=== PATIENT | male | born 1985 | race Two or more races ===

== ENCOUNTER 2021-07-16 13:51 | Inpatient (IN) | payer SELFPAY ==
[~2021-07-16] VITALS: Ht 190.5 cm; Wt 148.3 kg
[2021-07-16] MEDS ORDERED: DEXAMETHASONE SOD PHOSPHATE 6 MG in IV D5W 50 ML IV ONE (14:30)
[2021-07-16] MEDS ORDERED: IV NS 0.9% 1,000 ML IV ONE (14:30)
[2021-07-16] MEDS ORDERED: DEXAMETHASONE SOD PHOSPHATE 10 MG/ML VIAL ONE (14:32)
[2021-07-16] MEDS ORDERED: METF-442 PO (14:39)
[2021-07-16] MEDS ORDERED: LISI20TA30 PO (14:39)
[2021-07-16] MEDS ORDERED: CARV12.52 PO (14:39)
[2021-07-16] MEDS ORDERED: INSU100I26 SQ (14:39)
[2021-07-16] MEDS ORDERED: ASPI-1420 PO (14:39)
[2021-07-16] MEDS ORDERED: INSU100I34 SQ (14:39)
[2021-07-16] MEDS ORDERED: ATOR40TA PO (14:39)
[2021-07-16] MEDS ORDERED: GLIP5TAB13 PO (14:39)
[2021-07-16 15:25] LABS: BASOPHILS % (AUTO) 0.1 % (0.0-2.0); EOSINOPHILS % (AUTO) 0.3 % (0.0-6.0); HEMATOCRIT 37 % (39-51); HEMOGLOBIN 12.2 g/dL (13.5-17.5); LYMPHOCYTES # (AUTO) 0.9 K/uL (0.8-4.8); LYMPHOCYTES % (AUTO) 14.5 % (20.0-44.0); MEAN CORPUSCULAR HGB CONC 33 g/dl (31.0-36.0); MEAN CORPUSCULAR VOLUME 90 fL (80-96); MONOCYTES # (AUTO) 0.6 K/uL (0.1-1.30); MONOCYTES % (AUTO) 10.1 % (2.0-12.0); NEUTROPHILS # (AUTO) 4.5 K/uL (1.8-8.9); PLATELET COUNT (AUTO) 236 K/uL (150-450); RED BLOOD CELL COUNT(AUTO) 4.08 MIL/uL (4.5-6.0)
[2021-07-16 15:53] LABS: ALBUMIN 2.4 g/dL (3.4-5.0); BILIRUBIN,TOTAL 0.4 mg/dL (0.2-1.0); CALCIUM, SERUM 8.4 mg/dL (8.5-10.1); CREATININE 1.3 mg/dL (0.6-1.3); POTASSIUM 4.3 mmol/L (3.5-5.1); TOTAL PROTEIN, SERUM 7.4 g/dL (6.4-8.2)
[2021-07-16 15:57] LABS: D-DIMER 1.06 mg/L(FEU (0.17-0.50)
[2021-07-16 16:13] LABS: C-REACTIVE PROTEIN 6.2 mg/dL (0.0-0.9)
[2021-07-16] MEDS ORDERED: ONDANSETRON HCL/PF 4 MG/2 ML VIAL IVP PRN (16:30)
[2021-07-16] MEDS ORDERED: MAG HYDROX/AL HYDROX/SIMETH 30 ML UDC PO PRN (16:30)
[2021-07-16] MEDS ORDERED: ACETAMINOPHEN 325 MG TABLET PO PRN (16:30)
[2021-07-16] MEDS ORDERED: MORPHINE SULFATE INJ 2 MG/ML DISP.SYRIN IV PRN (16:30)
[2021-07-16] MEDS ORDERED: LABETALOL 20 MG/4 ML VIAL IV PRN (16:30)
[2021-07-16] MEDS ORDERED: MAGNESIUM HYDROXIDE 30 ML UDC PO PRN (16:30)
[2021-07-16] MEDS ORDERED: DEXTROSE 50%-WATER 50 ML DISP.SYRIN IV PRN (16:30)
[2021-07-16] MEDS ORDERED: ALBUTEROL SULFATE 8 GM HFA.AER.AD IH PRN (17:00)
[2021-07-16] MEDS ORDERED: METFORMIN 500 MG TABLET PO SCH (18:02)
[2021-07-16] MEDS ORDERED: CARVEDILOL 12.5 MG TABLET ONE (18:08)
[2021-07-16] MEDS ORDERED: ENOXAPARIN SODIUM 40 MG/0.4 ML DISP.SYRIN SQ ONE (18:08)
[2021-07-16] MEDS: CARVEDILOL 12.5 MG TABLET PO SCH (18:20)
[2021-07-16] MEDS: ENOXAPARIN SODIUM 40 MG/0.4 ML DISP.SYRIN SQ SCH (18:30)
[2021-07-16] MEDS: BLOOD SUGAR DIAGNOSTIC 1 EACH STRIP IN SCH ×2 (19:10→22:30)
[2021-07-16] MEDS ORDERED: ATORVASTATIN 40 MG TABLET ONE (19:13)
[2021-07-16] MEDS ORDERED: INSULIN REGULAR, HUMAN 100 UNIT/ML 10 ML VIAL ONE (19:14)
[2021-07-16] MEDS ORDERED: METFORMIN 500 MG TABLET ONE (19:14)
[2021-07-16] MEDS: ATORVASTATIN 40 MG TABLET PO SCH (19:27)
[2021-07-16] MEDS: INSULIN REGULAR, HUMAN 100 UNIT/ML 3 ML VIAL SQ PRN (19:29)
[2021-07-16 19:49] LABS: ABG BASE EXCESS -5.5 mmol/L; ABG PCO2 21.4 mmHg (35.0-45.0); ABG PH 7.486 (7.350-7.450); ABG PO2 116.6 mmHg (75.0-100.0); COHb 0.3 % (0.5-1.5); MetHb 0.1 % (0.0-1.5); O2Hb 97.4 % (94.0-97.0); SITE, ABG Right Radial; VENT MODE, BG NASAL CANNULA 6LPM
[2021-07-16] MEDS: FLUTICASONE/VILANTEROL 1 EACH BLST.W.DEV IH SCH (20:20)
[2021-07-16 21:30] VITALS: BP 124/79
[2021-07-16 21:40] LABS: ALBUMIN 2.2 g/dL (3.4-5.0); BILIRUBIN,DIRECT 0.2 mg/dL (0.0-0.2); BILIRUBIN,TOTAL 0.5 mg/dL (0.2-1.0); CALCIUM, SERUM 8.1 mg/dL (8.5-10.1); CREATININE 1.3 mg/dL (0.6-1.3); POTASSIUM 4.4 mmol/L (3.5-5.1)
[2021-07-16] MEDS ORDERED: REMDESIVIR (CHARGED) 200 MG, *LOADING DOSE 1 EA in IV NS 0.9% 210 ML IV ONE (22:00)
[2021-07-16] MEDS: INSULIN GLARGINE, 100 UNIT/ML CARTRIDGE SQ SCH (23:05)
[2021-07-17] VITALS: BP 145/97
[2021-07-17 04:00] VITALS: BP 142/100
[2021-07-17] MEDS: BLOOD SUGAR DIAGNOSTIC 1 EACH STRIP IN SCH ×4 (07:58→22:03)
[2021-07-17 08:00] VITALS: BP 135/92
[2021-07-17 08:44] LABS: BASOPHILS % (AUTO) 0.1 % (0.0-2.0); HEMATOCRIT 36 % (39-51); HEMOGLOBIN 12.3 g/dL (13.5-17.5); LYMPHOCYTES # (AUTO) 0.7 K/uL (0.8-4.8); LYMPHOCYTES % (AUTO) 15.9 % (20.0-44.0); MEAN CORPUSCULAR HGB CONC 34 g/dl (31.0-36.0); MEAN CORPUSCULAR VOLUME 89 fL (80-96); MONOCYTES # (AUTO) 0.6 K/uL (0.1-1.30); MONOCYTES % (AUTO) 13.6 % (2.0-12.0); NEUTROPHILS # (AUTO) 3.2 K/uL (1.8-8.9); NEUTROPHILS % (AUTO) 70.4 % (43.0-81.0); PLATELET COUNT (AUTO) 287 K/uL (150-450); RED BLOOD CELL COUNT(AUTO) 4.09 MIL/uL (4.5-6.0); WHITE BLOOD COUNT (AUTO) 4.5 K/uL (4.3-11.0)
[2021-07-17 08:58] LABS: ALBUMIN 2.1 g/dL (3.4-5.0); BILIRUBIN,TOTAL 0.5 mg/dL (0.2-1.0); CALCIUM, SERUM 8.6 mg/dL (8.5-10.1); CREATININE 1.2 mg/dL (0.6-1.3); MAGNESIUM 2.1 mg/dL (1.8-2.4); PHOSPHORUS 4.1 mg/dL (2.5-4.9); POTASSIUM 4.3 mmol/L (3.5-5.1); TOTAL PROTEIN, SERUM 6.8 g/dL (6.4-8.2)
[2021-07-17] MEDS: ASPIRIN EC 81 MG TABLET.DR PO SCH (08:59)
[2021-07-17] MEDS: LISINOPRIL (20MG) 20 MG TABLET PO SCH (08:59)
[2021-07-17] MEDS: DEXAMETHASONE SOD PHOSPHATE 10 MG/ML VIAL IV SCH (08:59)
[2021-07-17] MEDS: CARVEDILOL 12.5 MG TABLET PO SCH ×2 (09:00→17:04)
[2021-07-17] MEDS ORDERED: DEXAMETHASONE SOD PHOSPHATE 6 MG in IV D5W 50 ML IV SCH (09:00)
[2021-07-17] MEDS: FLUTICASONE/VILANTEROL 1 EACH BLST.W.DEV IH SCH (09:00)
[2021-07-17] MEDS: INSULIN REGULAR, HUMAN 100 UNIT/ML 3 ML VIAL SQ PRN ×3 (09:00→17:13)
[2021-07-17 12:00] VITALS: BP 140/90
[2021-07-17 16:00] VITALS: BP 132/82
[2021-07-17] MEDS: ATORVASTATIN 40 MG TABLET PO SCH (17:04)
[2021-07-17 20:00] VITALS: BP 136/86
[2021-07-17] MEDS: REMDESIVIR (CHARGED) 100 MG in IV NS 0.9% 100 ML IV SCH (20:41)
[2021-07-17] MEDS: ENOXAPARIN SODIUM 40 MG/0.4 ML DISP.SYRIN SQ SCH (20:41)
[2021-07-17] MEDS: INSULIN GLARGINE, 100 UNIT/ML CARTRIDGE SQ SCH (22:05)
[2021-07-18] VITALS: BP 131/72
[2021-07-18 04:00] VITALS: BP 122/72
[2021-07-18] MEDS: BLOOD SUGAR DIAGNOSTIC 1 EACH STRIP IN SCH ×4 (07:52→23:20)
[2021-07-18 08:00] VITALS: BP 126/75
[2021-07-18] MEDS: INSULIN REGULAR, HUMAN 100 UNIT/ML 3 ML VIAL SQ PRN ×4 (08:08→17:41)
[2021-07-18] MEDS: FLUTICASONE/VILANTEROL 1 EACH BLST.W.DEV IH SCH (09:12)
[2021-07-18] MEDS: DEXAMETHASONE SOD PHOSPHATE 10 MG/ML VIAL IV SCH (09:12)
[2021-07-18] MEDS: ASPIRIN EC 81 MG TABLET.DR PO SCH (09:13)
[2021-07-18] MEDS: CARVEDILOL 12.5 MG TABLET PO SCH ×2 (09:14→17:40)
[2021-07-18] MEDS: LISINOPRIL (20MG) 20 MG TABLET PO SCH (09:14)
[2021-07-18 12:00] VITALS: BP 129/76
[2021-07-18 14:18] LABS: BASOPHILS % (AUTO) 0.3 % (0.0-2.0); EOSINOPHILS % (AUTO) 0.2 % (0.0-6.0); HEMATOCRIT 38 % (39-51); HEMOGLOBIN 12.7 g/dL (13.5-17.5); LYMPHOCYTES # (AUTO) 0.7 K/uL (0.8-4.8); LYMPHOCYTES % (AUTO) 7.4 % (20.0-44.0); MEAN CORPUSCULAR HGB CONC 34 g/dl (31.0-36.0); MEAN CORPUSCULAR VOLUME 89 fL (80-96); MONOCYTES # (AUTO) 0.6 K/uL (0.1-1.30); MONOCYTES % (AUTO) 6.9 % (2.0-12.0); NEUTROPHILS # (AUTO) 7.6 K/uL (1.8-8.9); NEUTROPHILS % (AUTO) 85.2 % (43.0-81.0); PLATELET COUNT (AUTO) 319 K/uL (150-450); RED BLOOD CELL COUNT(AUTO) 4.24 MIL/uL (4.5-6.0); WHITE BLOOD COUNT (AUTO) 8.9 K/uL (4.3-11.0)
[2021-07-18 14:36] LABS: ALBUMIN 2.1 g/dL (3.4-5.0); BILIRUBIN,DIRECT 0.1 mg/dL (0.0-0.2); BILIRUBIN,TOTAL 0.4 mg/dL (0.2-1.0); CALCIUM, SERUM 9.3 mg/dL (8.5-10.1); CREATININE 1.2 mg/dL (0.6-1.3); POTASSIUM 4.2 mmol/L (3.5-5.1); TOTAL PROTEIN, SERUM 6.6 g/dL (6.4-8.2)
[2021-07-18 16:00] VITALS: BP 153/86
[2021-07-18] MEDS: ATORVASTATIN 40 MG TABLET PO SCH (17:39)
[2021-07-18 20:00] VITALS: BP 131/73
[2021-07-18] MEDS: ENOXAPARIN SODIUM 40 MG/0.4 ML DISP.SYRIN SQ SCH (21:57)
[2021-07-18] MEDS: INSULIN GLARGINE, 100 UNIT/ML CARTRIDGE SQ SCH (22:57)
[2021-07-18] MEDS: REMDESIVIR (CHARGED) 100 MG in IV NS 0.9% 100 ML IV SCH (23:21)
[2021-07-19] VITALS: BP 130/70
[2021-07-19 04:00] VITALS: BP 136/71
[2021-07-19 07:21] LABS: BASOPHILS % (AUTO) 0.1 % (0.0-2.0); EOSINOPHILS % (AUTO) 1.1 % (0.0-6.0); HEMATOCRIT 36 % (39-51); LYMPHOCYTES # (AUTO) 1.2 K/uL (0.8-4.8); LYMPHOCYTES % (AUTO) 18.1 % (20.0-44.0); MEAN CORPUSCULAR HGB CONC 34 g/dl (31.0-36.0); MEAN CORPUSCULAR VOLUME 89 fL (80-96); MONOCYTES # (AUTO) 0.7 K/uL (0.1-1.30); MONOCYTES % (AUTO) 10.7 % (2.0-12.0); NEUTROPHILS # (AUTO) 4.8 K/uL (1.8-8.9); PLATELET COUNT (AUTO) 312 K/uL (150-450); RED BLOOD CELL COUNT(AUTO) 4.01 MIL/uL (4.5-6.0); WHITE BLOOD COUNT (AUTO) 6.9 K/uL (4.3-11.0)
[2021-07-19 08:00] VITALS: BP 136/93
[2021-07-19 08:34] LABS: ALBUMIN 2.1 g/dL (3.4-5.0); BILIRUBIN,DIRECT 0.2 mg/dL (0.0-0.2); BILIRUBIN,TOTAL 0.4 mg/dL (0.2-1.0); CALCIUM, SERUM 8.3 mg/dL (8.5-10.1); CREATININE 1.1 mg/dL (0.6-1.3); POTASSIUM 3.8 mmol/L (3.5-5.1); TOTAL PROTEIN, SERUM 6.3 g/dL (6.4-8.2)
[2021-07-19] MEDS: BLOOD SUGAR DIAGNOSTIC 1 EACH STRIP IN SCH ×4 (10:32→21:08)
[2021-07-19] MEDS: LISINOPRIL (20MG) 20 MG TABLET PO SCH (10:32)
[2021-07-19] MEDS: ASPIRIN EC 81 MG TABLET.DR PO SCH (10:32)
[2021-07-19] MEDS: CARVEDILOL 12.5 MG TABLET PO SCH ×2 (10:33→17:37)
[2021-07-19] MEDS: DEXAMETHASONE SOD PHOSPHATE 10 MG/ML VIAL IV SCH (10:33)
[2021-07-19] MEDS: INSULIN REGULAR, HUMAN 100 UNIT/ML 3 ML VIAL SQ PRN ×3 (10:37→18:05)
[2021-07-19] MEDS: FLUTICASONE/VILANTEROL 1 EACH BLST.W.DEV IH SCH (11:00)
[2021-07-19 12:00] VITALS: BP 123/81
[2021-07-19 16:00] VITALS: BP 126/65
[2021-07-19] MEDS: ATORVASTATIN 40 MG TABLET PO SCH (17:36)
[2021-07-19 20:00] VITALS: BP 100/67
[2021-07-19] MEDS: REMDESIVIR (CHARGED) 100 MG in IV NS 0.9% 100 ML IV SCH (21:05)
[2021-07-19] MEDS: ENOXAPARIN SODIUM 40 MG/0.4 ML DISP.SYRIN SQ SCH (21:08)
[2021-07-19] MEDS: INSULIN GLARGINE, 100 UNIT/ML CARTRIDGE SQ SCH (21:58)
[2021-07-20] VITALS: BP 111/76
[2021-07-20 04:00] VITALS: BP 147/84
[2021-07-20 07:52] LABS: BASOPHILS % (AUTO) 0.1 % (0.0-2.0); EOSINOPHILS % (AUTO) 1.5 % (0.0-6.0); HEMATOCRIT 36 % (39-51); HEMOGLOBIN 12.2 g/dL (13.5-17.5); LYMPHOCYTES # (AUTO) 1.4 K/uL (0.8-4.8); LYMPHOCYTES % (AUTO) 22.1 % (20.0-44.0); MEAN CORPUSCULAR HGB CONC 34 g/dl (31.0-36.0); MEAN CORPUSCULAR VOLUME 90 fL (80-96); MONOCYTES # (AUTO) 0.7 K/uL (0.1-1.30); MONOCYTES % (AUTO) 10.8 % (2.0-12.0); NEUTROPHILS # (AUTO) 4.1 K/uL (1.8-8.9); NEUTROPHILS % (AUTO) 65.5 % (43.0-81.0); PLATELET COUNT (AUTO) 318 K/uL (150-450); RED BLOOD CELL COUNT(AUTO) 4.02 MIL/uL (4.5-6.0); WHITE BLOOD COUNT (AUTO) 6.3 K/uL (4.3-11.0)
[2021-07-20 08:00] VITALS: BP 126/82
[2021-07-20 08:26] LABS: ALBUMIN 2.1 g/dL (3.4-5.0); BILIRUBIN,DIRECT 0.2 mg/dL (0.0-0.2); BILIRUBIN,TOTAL 0.5 mg/dL (0.2-1.0); CALCIUM, SERUM 8.5 mg/dL (8.5-10.1); CREATININE 1.1 mg/dL (0.6-1.3); TOTAL PROTEIN, SERUM 6.5 g/dL (6.4-8.2)
[2021-07-20] MEDS: DEXAMETHASONE SOD PHOSPHATE 10 MG/ML VIAL IV SCH (09:03)
[2021-07-20] MEDS: CARVEDILOL 12.5 MG TABLET PO SCH ×2 (09:03→16:40)
[2021-07-20] MEDS: LISINOPRIL (20MG) 20 MG TABLET PO SCH (09:03)
[2021-07-20] MEDS: ASPIRIN EC 81 MG TABLET.DR PO SCH (09:03)
[2021-07-20] MEDS: FLUTICASONE/VILANTEROL 1 EACH BLST.W.DEV IH SCH (09:04)
[2021-07-20] MEDS: INSULIN REGULAR, HUMAN 100 UNIT/ML 3 ML VIAL SQ PRN ×3 (09:16→16:47)
[2021-07-20] MEDS: BLOOD SUGAR DIAGNOSTIC 1 EACH STRIP IN SCH ×4 (09:16→21:45)
[2021-07-20 12:00] VITALS: BP 126/70
[2021-07-20 16:00] VITALS: BP 117/78
[2021-07-20] MEDS: ATORVASTATIN 40 MG TABLET PO SCH (17:05)
[2021-07-20 20:00] VITALS: BP 110/67
[2021-07-20] MEDS: REMDESIVIR (CHARGED) 100 MG in IV NS 0.9% 100 ML IV SCH (21:43)
[2021-07-20] MEDS: ENOXAPARIN SODIUM 40 MG/0.4 ML DISP.SYRIN SQ SCH (21:50)
[2021-07-20] MEDS ORDERED: INSULIN REGULAR, HUMAN 100 UNIT/ML 3 ML VIAL SQ PRN (22:30)
[2021-07-20] MEDS ORDERED: DEXTROSE 50%-WATER 50 ML DISP.SYRIN IV PRN (22:30)
[2021-07-20] MEDS: INSULIN GLARGINE, 100 UNIT/ML CARTRIDGE SQ SCH (22:54)
[2021-07-20] MEDS: *INSULIN REGULAR(HUMULIN R)HUM 100 UNIT/ML VIAL SQ PRN (23:02)
[2021-07-21] VITALS: BP 109/77
[2021-07-21 04:00] VITALS: BP 132/74
[2021-07-21 08:00] VITALS: BP 100/66
[2021-07-21 08:16] LABS: BASOPHILS % (AUTO) 0.2 % (0.0-2.0); EOSINOPHILS % (AUTO) 0.8 % (0.0-6.0); HEMATOCRIT 37 % (39-51); HEMOGLOBIN 12.6 g/dL (13.5-17.5); LYMPHOCYTES # (AUTO) 1.7 K/uL (0.8-4.8); LYMPHOCYTES % (AUTO) 23.5 % (20.0-44.0); MEAN CORPUSCULAR HGB CONC 34 g/dl (31.0-36.0); MEAN CORPUSCULAR VOLUME 90 fL (80-96); MONOCYTES # (AUTO) 0.7 K/uL (0.1-1.30); MONOCYTES % (AUTO) 10.1 % (2.0-12.0); NEUTROPHILS # (AUTO) 4.8 K/uL (1.8-8.9); NEUTROPHILS % (AUTO) 65.4 % (43.0-81.0); PLATELET COUNT (AUTO) 355 K/uL (150-450); RED BLOOD CELL COUNT(AUTO) 4.16 MIL/uL (4.5-6.0); WHITE BLOOD COUNT (AUTO) 7.4 K/uL (4.3-11.0)
[2021-07-21 08:29] LABS: ALBUMIN 2.2 g/dL (3.4-5.0); BILIRUBIN,DIRECT 0.2 mg/dL (0.0-0.2); BILIRUBIN,TOTAL 0.5 mg/dL (0.2-1.0); CALCIUM, SERUM 8.7 mg/dL (8.5-10.1); CREATININE 1.1 mg/dL (0.6-1.3); TOTAL PROTEIN, SERUM 6.5 g/dL (6.4-8.2)
[2021-07-21] MEDS: BLOOD SUGAR DIAGNOSTIC 1 EACH STRIP IN SCH ×4 (08:52→22:52)
[2021-07-21] MEDS: ASPIRIN EC 81 MG TABLET.DR PO SCH (08:54)
[2021-07-21] MEDS: DEXAMETHASONE SOD PHOSPHATE 10 MG/ML VIAL IV SCH (08:54)
[2021-07-21] MEDS: CARVEDILOL 12.5 MG TABLET PO SCH ×2 (08:56→17:52)
[2021-07-21] MEDS: LISINOPRIL (20MG) 20 MG TABLET PO SCH (08:57)
[2021-07-21] MEDS: FLUTICASONE/VILANTEROL 1 EACH BLST.W.DEV IH SCH (09:13)
[2021-07-21 12:00] VITALS: BP 108/65
[2021-07-21 16:00] VITALS: BP 125/87
[2021-07-21] MEDS: ATORVASTATIN 40 MG TABLET PO SCH (17:51)
[2021-07-21 20:00] VITALS: BP 137/94
[2021-07-21] MEDS: ENOXAPARIN SODIUM 40 MG/0.4 ML DISP.SYRIN SQ SCH (21:57)
[2021-07-21] MEDS ORDERED: BLOOD SUGAR DIAGNOSTIC 1 EACH STRIP VI SCH (22:00)
[2021-07-21] MEDS: *INSULIN REGULAR(HUMULIN R)HUM 100 UNIT/ML VIAL SQ PRN (22:45)
[2021-07-21] MEDS: INSULIN GLARGINE, 100 UNIT/ML CARTRIDGE SQ SCH (22:48)
[2021-07-22] VITALS: BP_SYST 105; BP_SYST 137; BP_DIAS 61; BP_DIAS 94
[2021-07-22 04:00] VITALS: BP 154/88
[2021-07-22] MEDS: BLOOD SUGAR DIAGNOSTIC 1 EACH STRIP IN SCH (07:59)
[2021-07-22] MEDS: ASPIRIN EC 81 MG TABLET.DR PO SCH (08:31)
[2021-07-22 08:32] VITALS: BP 138/81
[2021-07-22] MEDS: CARVEDILOL 12.5 MG TABLET PO SCH (08:32)
[2021-07-22] MEDS: FLUTICASONE/VILANTEROL 1 EACH BLST.W.DEV IH SCH (08:32)
[2021-07-22] MEDS: LISINOPRIL (20MG) 20 MG TABLET PO SCH (08:32)
[2021-07-22] MEDS: DEXAMETHASONE SOD PHOSPHATE 10 MG/ML VIAL IV SCH (08:32)
[2021-07-22] MEDS ORDERED: ATOR40TA PO (10:41)
[2021-07-22] MEDS ORDERED: FLUT1BLS IH (10:41)
[2021-07-22] MEDS ORDERED: ALBU18HF2 IH (10:41)
[2021-07-22] MEDS ORDERED: CARV12.52 PO (10:41)
[2021-07-22] MEDS ORDERED: DEXA4TAB PO (10:50)
== END 2021-07-22 10:31 | disposition home or self-care (01) | DRG 177 ==
LOC: ER 13:55 → TRANSITION 17:46 → TELE1 20:12
PROVIDERS: ADMIT Internal Medicine; ATTEND Internal Medicine
PROC: XW033E5 Introduction of Remdesivir Anti-infective into Peripheral Vein, Percutaneous Approach, New Technology Group 5 (ICD-10-PCS; principal; 2021-07-16)
PROC: 05H933Z Insertion of Infusion Device into Right Brachial Vein, Percutaneous Approach (ICD-10-PCS; 2021-07-21)
DX: U07.1 COVID-19 (principal); J12.82 Pneumonia due to coronavirus disease 2019; J96.01 Acute respiratory failure with hypoxia; Z68.41 Body mass index [BMI] 40.0-44.9, adult; E22.2 Syndrome of inappropriate secretion of antidiuretic hormone; I69.354 Hemiplegia and hemiparesis following cerebral infarction affecting left non-dominant side; I10 Essential (primary) hypertension; E11.65 Type 2 diabetes mellitus with hyperglycemia; Z79.4 Long term (current) use of insulin; Z79.84 Long term (current) use of oral hypoglycemic drugs; Z79.899 Other long term (current) drug therapy; E66.01 Morbid (severe) obesity due to excess calories; D64.9 Anemia, unspecified; E78.00 Pure hypercholesterolemia, unspecified; R74.01 Elevation of levels of liver transaminase levels
CPT/HCPCS: 36415; 36600; 71045-TC; 80048-TC; 80053-TC; 80076-TC; 82550-TC; 82553; 82728-TC; 82803-TC; 82962-TC; 83605-TC; 83615-TC; 83735-TC; 83880; 84100-TC; 84484-TC; 85025-TC; 85378-TC; 85385-TC; 85610-TC; 85730-TC; 86140-TC; 87040-TC; 87081-TC; 93970-TC; A4216; G0378; J1100; J1650; J1815; J3490; J7030; J7040; J7050; J7060; U0003

== ENCOUNTER 2021-08-04 14:45 | Emergency (ER) | payer MEDICAID, SELFPAY ==
[~2021-08-04] VITALS: Ht 190.5 cm; Wt 147.9 kg
[~2021-08-04 14:45] MED LIST: ALBU18HF2 IH; ASPI-1420 PO; ATOR40TA PO; CARV12.52 PO; DEXA4TAB PO; FLUT1BLS IH; GLIP5TAB13 PO; INSU100I26 SQ; INSU100I34 SQ; LISI20TA30 PO; METF-442 PO
--- NOTE | 2021-08-04 15:10 | NUR ---
SANDIP [id number] From Home "woke up this am felt dizzy/room moving. Nausea". The patient is alert and oriented x4. Denies pain. In room air and denies SOB. Respiration regular and unlabored. Attached to the monitor. WWarm blanket provided for comfort. Will continue to monitor the patient.
[2021-08-04] MEDS ORDERED: ONDANSETRON 4 MG TAB.RAPDIS ONE (15:20)
[2021-08-04] MEDS ORDERED: MECLIZINE HCL 25 MG TABLET ONE (15:20)
[2021-08-04] MEDS ORDERED: MECLIZINE HCL 12.5 MG TABLET PO ONE (15:30)
[2021-08-04] MEDS ORDERED: ONDANSETRON 4 MG TAB.RAPDIS SL ONE (15:30)
[2021-08-04 15:44] LABS: BASOPHILS % (AUTO) 0.3 % (0.0-2.0); EOSINOPHILS % (AUTO) 0.7 % (0.0-6.0); HEMATOCRIT 37 % (39-51); HEMOGLOBIN 12.3 g/dL (13.5-17.5); LYMPHOCYTES # (AUTO) 0.9 K/uL (0.8-4.8); LYMPHOCYTES % (AUTO) 12.9 % (20.0-44.0); MEAN CORPUSCULAR HGB CONC 33 g/dl (31.0-36.0); MEAN CORPUSCULAR VOLUME 92 fL (80-96); MONOCYTES # (AUTO) 0.4 K/uL (0.1-1.30); MONOCYTES % (AUTO) 5.5 % (2.0-12.0); NEUTROPHILS # (AUTO) 5.4 K/uL (1.8-8.9); NEUTROPHILS % (AUTO) 80.6 % (43.0-81.0); PLATELET COUNT (AUTO) 223 K/uL (150-450); RED BLOOD CELL COUNT(AUTO) 4.08 MIL/uL (4.5-6.0); WHITE BLOOD COUNT (AUTO) 6.8 K/uL (4.3-11.0)
[2021-08-04 16:04] LABS: CALCIUM, SERUM 8.9 mg/dL (8.5-10.1); CARBON DIOXIDE 24 mmol/L (21-32); CHLORIDE 103 mmol/L (98-107); GLUCOSE 231 mg/dL (74-106); POTASSIUM 4.6 mmol/L (3.5-5.1); SODIUM SERUM 135 mmol/L (136-145); UREA NITROGEN, BLOOD 14 mg/dL (7-18)
[2021-08-04 16:09] LABS: ALANINE AMINOTRANSFERASE 29 U/L (12-78); ALBUMIN 2.9 g/dL (3.4-5.0); ALKALINE PHOSPHATASE 102 U/L (46-116); ASPARTATE AMINOTRANSFERASE 17 U/L (15-37); BILIRUBIN,DIRECT 0.2 mg/dL (0.0-0.2); BILIRUBIN,TOTAL 0.7 mg/dL (0.2-1.0); TOTAL PROTEIN, SERUM 7.3 g/dL (6.4-8.2)
[2021-08-04] MEDS ORDERED: ONDA-97 PO (16:31)
[2021-08-04] MEDS ORDERED: MECL-159 PO (16:31)
--- NOTE | 2021-08-04 16:47 | NUR ---
CALLED [facility] AND SET UP [facility] ETA [phone]
[2021-08-04 17:21] LABS: BAND % (MANUAL) 2 % (0.0-5.0); LYMPHOCYTES % (MANUAL) 11 % (16-48); MONOCYTES % (MANUAL) 5 % (0-11.0); NEUTROPHILS % (MANUAL) 82 (42-76)
--- NOTE | 2021-08-04 19:13 | NUR ---
report given to nurse Vamsi
--- NOTE | 2021-08-04 19:48 | NUR ---
REPORT GIVEN TO ASHOK WEISS EMT FOR DC. PT DC TO HOME IN STABLE CONDITION.
[2021-08-04 21:31] VITALS: BP 121/79
== END 2021-08-04 19:58 | disposition home or self-care (01) ==
LOC: ER 15:01
DX: H81.399 Other peripheral vertigo, unspecified ear (principal); I10 Essential (primary) hypertension; E11.9 Type 2 diabetes mellitus without complications; Z79.899 Other long term (current) drug therapy; Z86.73 Personal history of transient ischemic attack (TIA), and cerebral infarction without residual deficits; Z79.82 Long term (current) use of aspirin; Z79.84 Long term (current) use of oral hypoglycemic drugs; Z79.4 Long term (current) use of insulin
CPT/HCPCS: 36415; 80048; 80076; 84484; 85007; 85025; 93005; 99284; J8597; Q0162